=== PATIENT | male | born 1990 | race Caucasian/White ===

== ENCOUNTER 2021-07-10 09:15 | Emergency (ER) | payer OTHER ==
[~2021-07-10] VITALS: Ht 175.3 cm; Wt 81.6 kg
[2021-07-10] MEDS ORDERED: KETOROLAC TROMETHAMINE 60 MG INJ IM ONE ×2 (09:30→09:56)
[2021-07-10] MEDS ORDERED: HYDR-4209 PO (10:23)
[2021-07-10] MEDS ORDERED: IBUP800T54 PO (10:23)
[2021-07-10] MEDS ORDERED: CYCL10TA9 PO (10:23)
--- NOTE | 2021-07-10 10:31 | NUR ---
PT WAS EVALUATED BY DR BILLY. PT WAS D/C'd TO HOME. D/C INSTRUCTIONS GIVEN TO THE PT BY DR BILLY.
[2021-07-10] MEDS ORDERED: HYDROCODONE/APAP 10-325 MG TABLET ONE (10:43)
[2021-07-10] MEDS ORDERED: HYDROCODONE/APAP 10-325 MG TABLET PO ONE (10:45)
[2021-07-10 10:47] VITALS: BP 131/88
== END 2021-07-10 10:48 | disposition home or self-care (01) ==
LOC: ER 09:15
DX: S33.131A Dislocation of L3/L4 lumbar vertebra, initial encounter (principal); S33.141A Dislocation of L4/L5 lumbar vertebra, initial encounter; X50.0XXA Overexertion from strenuous movement or load, initial encounter; Y92.69 Other specified industrial and construction area as the place of occurrence of the external cause; Y99.0 Civilian activity done for income or pay
CPT/HCPCS: 72131; A4663; J1885